=== PATIENT | male | born 1975 | race American Indian/Alaskan Native ===

== ENCOUNTER 2016-10-06 22:36 | Emergency (ER) | payer BC, OTHER ==
[2016-10-07] MEDS ORDERED: Sodium Chloride 0.9% 1,000 ML IV SCH
[2016-10-07] MEDS ORDERED: Sodium Chloride 0.9% 10 ML Syringe FLUSH PRN
[2016-10-07 01:33] VITALS: BP 117/64
--- NOTE | 2016-10-07 02:45 | EDM.PDOC ---
ED HPI GENERAL MEDICAL PROBLEM - General Chief Complaint: General Stated Complaint: ILLNESS Time Seen by Provider: 10/06/16 23:52 Source of Information: Reports: Patient, Family History Limitations: Reports: No Limitations - History of Present Illness INITIAL COMMENTS - FREE TEXT/NARRATIVE: This patient was brought in by his after an incident at home. The family came walking in the house where the patient had been sitting on a stool the stool had been knocked over and some dishes were broken. The patient had gone to the bathroom and locked the door. At first he wouldn't come out until his threatened to call EMS. The patient says he doesn't remember anything about the stool falling over or the dishes being broken. He has been drinking today and drank about 10 beers Lower Back Pain Score (Numeric/FACES): 4 - Related Data Allergies Allergy/AdvReac Type Severity Reaction Status Date / Time cranberry Allergy Swelling Verified 10/06/16 23:05 ibuprofen [From Advil] Allergy Swelling Verified 10/06/16 23:05 Home Meds: Home Meds *Menthol/[id number]% Cream 1 applic TOP QID 10/06/16 [History] Acetaminophen [Tylenol] 325 mg RC Q4H PRN 10/06/16 [History] Dicyclomine HCl [Bentyl] 10 mg PO BID 10/06/16 [History] Losartan [Cozaar] 25 mg PO DAILY 10/06/16 [History] Simvastatin [Zocor] 20 mg PO DAILY 10/06/16 [History] glipiZIDE [Glucotrol] 5 mg PO DAILY 10/06/16 [History] Past Medical History Cardiovascular History: Reports: High Cholesterol, Hypertension Gastrointestinal History: Reports: GERD Other Musculoskeletal History: injury to lower back 1 month ago Neurological History: Reports: Migraines Endocrine/Metabolic History: Reports: Diabetes, Type II, Obesity/BMI 30+ Dermatologic History: Reports: Eczema Social & Family History - Tobacco Use Smoking Status *Q: Never Smoker - Caffeine Use Caffeine Use: Reports: Soda - Recreational Drug Use Recreational Drug Use: No ED ROS GENERAL - Review of Systems Review Of Systems: ROS reveals no pertinent complaints other than HPI. ED EXAM, GENERAL - Physical Exam Exam: See Below Exam Limited By: No Limitations General Appearance: Alert, No Apparent Distress, Obese, Other (He does have a little bit of alcohol odor to him but does not appear intoxicated) Eye Exam: Bilateral Eye: EOMI, PERRL Ears: Normal External Exam Nose: Normal Inspection Throat/Mouth: Normal Oropharynx Head: Atraumatic Neck: Normal Inspection Respiratory/Chest: Lungs Clear Cardiovascular: Regular Rate, Rhythm GI/Abdominal: Non-Tender Extremities: Normal Inspection Neurological: Alert, Oriented, CN II-XII Intact, Normal Cognition Psychiatric: Normal Affect Skin Exam: Warm, Dry Course - Vital Signs Last Recorded V/S: Last Vital Signs Temp 36.1 C 10/07/16 01:32 Pulse 84 10/07/16 01:32 Resp 18 10/07/16 01:32 BP 117/64 10/07/16 01:32 Pulse Ox 94 L 10/07/16 01:32 - Orders/Labs/Meds Orders: Active Orders 24 hr Category Date Time Status Saline Lock Insert [OM.PC] Urgent Oth 10/07/16 00:00 Ordered Labs: Laboratory Tests 10/07/16 10/07/16 10/07/16 Range/Units 00:10 00:10 00:10 WBC 8.2 (4.5-11.0) K/uL RBC 5.02 (4.30-5.90) M/uL Hgb 15.3 H (12.0-15.0) g/dL Hct 43.2 (40.0-54.0) % MCV 86 (80-98) fL MCH 31 (27-31) pg MCHC 35 (32-36) % Plt Count 190 (150-400) K/uL Neut % (Auto) 62 (36-66) % Lymph % (Auto) 23 L (24-44) % Maries % (Auto) 10 H (2-6) % Eos % (Auto) 4 (2-4) % Baso % (Auto) 2 H (0-1) % Sodium 131 L (140-148) mmol/L Potassium 5.0 (3.6-5.2) mmol/L Chloride 98 L (100-108) mmol/L Carbon Dioxide 19 L (21-32) mmol/L Anion Gap 19.0 H (5.0-14.0) mmol/L BUN 9 (7-18) mg/dL Creatinine 0.9 (0.8-1.3) mg/dL Est Cr Clr Drug Dosing 109.27 mL/min Estimated GFR (MDRD) > 60 (>60) Glucose 103 (74-106) mg/dL Calcium 8.4 L (8.5-10.1) mg/dL Total Bilirubin 0.7 (0.2-1.0) mg/dL AST 65 H (15-37) U/L ALT 99 H (12-78) U/L Alkaline Phosphatase 89 (46-116) U/L Total Protein 8.6 H (6.4-8.2) g/dL Albumin 3.3 L (3.4-5.0) g/dL Globulin 5.3 H (2.3-3.5) g/dL Albumin/Globulin Ratio 0.6 L (1.2-2.2) Urine Color Urine Appearance Urine pH (4.5-8.0) Ur Specific Stella (1.008-1.030) Urine Protein (NEGATIVE) mg/dL Urine Glucose (UA) (NEGATIVE) mg/dL Urine Ketones (NEGATIVE) mg/dL Urine Occult Blood (NEGATIVE) Urine Nitrite (NEGAITVE) Urine Bilirubin (NEGATIVE) Urine Urobilinogen (NORMAL) mg/dL Ur Leukocyte Esterase (NEGATIVE) Urine RBC (0-5) Urine WBC (0-5) Ur Epithelial Cells Amorphous Sediment Urine Bacteria Urine Mucus Urine Opiates Screen (NEGATIVE) Ur Oxycodone Screen (NEGATIVE) Urine Methadone Screen (NEGATIVE) Ur Propoxyphene Screen (NEGATIVE) Ur Barbiturates Screen (NEGATIVE) Ur Tricyclics Screen (NEGATIVE) Ur Phencyclidine Scrn (NEGATIVE) Ur Amphetamine Screen (NEGATIVE) U Methamphetamines Scrn (NEGATIVE) Urine MDMA Screen (NEGATIVE) U Benzodiazepines Scrn (NEGATIVE) U Cocaine Metab Screen (NEGATIVE) U Marijuana (THC) Screen (NEGATIVE) Ethyl Alcohol 168 mg/dL 10/07/16 10/07/16 Range/Units 00:25 00:25 WBC (4.5-11.0) K/uL RBC (4.30-5.90) M/uL Hgb (12.0-15.0) g/dL Hct (40.0-54.0) % MCV (80-98) fL MCH (27-31) pg MCHC (32-36) % Plt Count (150-400) K/uL Neut % (Auto) (36-66) % Lymph % (Auto) (24-44) % Maries % (Auto) (2-6) % Eos % (Auto) (2-4) % Baso % (Auto) (0-1) % Sodium (140-148) mmol/L Potassium (3.6-5.2) mmol/L Chloride (100-108) mmol/L Carbon Dioxide (21-32) mmol/L Anion Gap (5.0-14.0) mmol/L BUN (7-18) mg/dL Creatinine (0.8-1.3) mg/dL Est Cr Clr Drug Dosing mL/min Estimated GFR (MDRD) (>60) Glucose (74-106) mg/dL Calcium (8.5-10.1) mg/dL Total Bilirubin (0.2-1.0) mg/dL AST (15-37) U/L ALT (12-78) U/L Alkaline Phosphatase (46-116) U/L Total Protein (6.4-8.2) g/dL Albumin (3.4-5.0) g/dL Globulin (2.3-3.5) g/dL Albumin/Globulin Ratio (1.2-2.2) Urine Color Yellow Urine Appearance Clear Urine pH 6.0 (4.5-8.0) Ur Specific Stella 1.010 (1.008-1.030) Urine Protein Negative (NEGATIVE) mg/dL Urine Glucose (UA) Normal (NEGATIVE) mg/dL Urine Ketones Negative (NEGATIVE) mg/dL Urine Occult Blood Negative (NEGATIVE) Urine Nitrite Negative (NEGAITVE) Urine Bilirubin Negative (NEGATIVE) Urine Urobilinogen Normal (NORMAL) mg/dL Ur Leukocyte Esterase Negative (NEGATIVE) Urine RBC 0-5 (0-5) Urine WBC 0-5 (0-5) Ur Epithelial Cells Rare Amorphous Sediment Not seen Urine Bacteria Few Urine Mucus Not seen Urine Opiates Screen Negative (NEGATIVE) Ur Oxycodone Screen Negative (NEGATIVE) Urine Methadone Screen Negative (NEGATIVE) Ur Propoxyphene Screen Negative (NEGATIVE) Ur Barbiturates Screen Negative (NEGATIVE) Ur Tricyclics Screen Negative (NEGATIVE) Ur Phencyclidine Scrn Negative (NEGATIVE) Ur Amphetamine Screen Negative (NEGATIVE) U Methamphetamines Scrn Negative (NEGATIVE) Urine MDMA Screen Negative (NEGATIVE) U Benzodiazepines Scrn Negative (NEGATIVE) U Cocaine Metab Screen Negative (NEGATIVE) U Marijuana (THC) Screen Negative (NEGATIVE) Ethyl Alcohol mg/dL Meds: Medications Discontinued Medications Generic Name Dose Route Start Last Admin Trade Name Danielle PRN Reason Stop Dose Admin Sodium Chloride 1,000 mls @ 999 mls/hr 10/07/16 00:00 10/07/16 00:16 Normal Saline IV 999 mls/hr ASDIRECTED JOHN Administration Sodium Chloride 10 ml 10/07/16 00:00 Saline Flush FLUSH ASDIRECTED PRN Keep Vein Open - Re-Assessments/Exams Free Text/Narrative Re-Assessment/Exam: 10/07/16 05:09 Labs were reviewed. Blood alcohol is 168. Most likely the incident at home had something to do with alcohol intoxication Departure - Departure Time of Disposition: 02:44 Disposition: Home, Self-Care 01 Condition: Fair Clinical Impression: Alcohol intoxication - Discharge Information Instructions: Alcohol Intoxication Referrals: Tammie Oliveira I, PSYCHIATRIC CLINICIAN [Primary Care Provider] - Forms: ED Department Discharge Additional Instructions: Avoid any and all alcohol. Be sure to drink plenty of liquids and eat a balanced diet. For any more problems return to ER or see your Dr. - My Orders Last 24 Hours: My Active Orders 10/07/16 00:00 Saline Lock Insert [OM.PC] Urgent - Assessment/Plan Last 24 Hours: My Active Orders 10/07/16 00:00 Saline Lock Insert [OM.PC] Urgent
== END 2016-10-07 02:56 | disposition home or self-care (01) ==
LOC: JP.ED 22:36
DX: F10.129 Alcohol abuse with intoxication, unspecified (principal); E78.00 Pure hypercholesterolemia, unspecified; I10 Essential (primary) hypertension; K21.9 Gastro-esophageal reflux disease without esophagitis; E11.9 Type 2 diabetes mellitus without complications; E66.9 Obesity, unspecified; Z79.84 Long term (current) use of oral hypoglycemic drugs; Z79.899 Other long term (current) drug therapy; Z91.018 Allergy to other foods; Z88.6 Allergy status to analgesic agent; Y90.6 Blood alcohol level of 120-199 mg/100 ml
CPT/HCPCS: 36415; 80053; 80305; 81001; 85025; 96360; 99284; G0480; J7040